=== PATIENT | female | born 1935 | race Caucasian/White ===

== ENCOUNTER → 2019-10-03 14:32 | Outpatient (CLI) | payer MEDICARE, SELFPAY ==
[2019-10-03 18:09] LABS: Protein, Urine (Random) 26.2 mg/dL (<11.9); Protein:Creat Ratio 165 mg/g CRE (0-200)
== END ==
PROVIDERS: Family Provider Family Medicine; PCP Family Medicine; Visit Provider Internal Medicine Nephrology
DX: N18.3 Chronic kidney disease, stage 3 (moderate) (principal)
CPT/HCPCS: 82570; 84156

== ENCOUNTER → 2019-10-06 13:53 | Outpatient (CLI) | payer MEDICARE, SELFPAY ==
--- NOTE | 2019-10-06 14:01 | US_ITS ---
STUDY: RENAL ULTRASOUND - COMPLETE REASON FOR EXAM: Female, 84 years old. Chronic renal disease stage III. TECHNIQUE: Ultrasound evaluation of the kidneys was performed with real-time and static saavedra-scale imaging. COMPARISON: None. FINDINGS: RIGHT KIDNEY: Normal location of the right kidney, which is normal in size. The right kidney measures 9.9 x 6.2 x 3.7 cm. There is a normal cortex of the right kidney. The renal cortex measures 1.0 cm. Within the right kidney there is a round anechoic structure measuring 1.9 x 1.8 x 1.7 cm at the level of the middle pole, exophytic and compatible with a simple cyst. There are no right renal calculi. There is an extra-renal pelvis of the right kidney. There is no distention of the renal calyces. DISTAL RIGHT URETER: There is non-visualization of the distal right ureter. There is no demonstrated right ureterovesical junction calculus. There is a visualized right ureteral jet. LEFT KIDNEY: Normal location of the left kidney, which is normal in size. The left kidney measures 9.1 x 4.7 x 4.6 cm. There is a normal cortex of the left kidney. The renal cortex measures 1.3 cm. Within the left kidney there is a round anechoic structure in the medial portion at the mid lower pole measuring 3.6 x 2.5 x 2.8 cm compatible with a simple cyst. There are no left renal calculi. There is an extra-renal pelvis of the left kidney. There is no distention of the renal calyces. DISTAL LEFT URETER: There is non-visualization of the distal left ureter. There is no demonstrated left ureterovesical junction calculus. There is a visualized left ureteral jet. BLADDER: The urinary bladder has a volume of 68.19 ml There is a normal wall thickness of the distended urinary bladder. There is no demonstrated mass within the urinary bladder. There are no demonstrated bladder calculi. US/Kidney and Bladder IMPRESSION: Bilateral renal cysts. Small extrarenal pelvises as described above, remainder of the renal and visualized lateral ultrasound unremarkable. Electronically Signed: Simran Cain MD at 4:15 EST , Service support ,
== END ==
PROVIDERS: Family Provider Family Medicine; PCP Family Medicine; Referring Provider Internal Medicine Nephrology; Visit Provider Internal Medicine Nephrology
DX: N18.3 Chronic kidney disease, stage 3 (moderate) (principal)
CPT/HCPCS: 76770